=== PATIENT | female | born 1990 | race Hispanic/Latino ===

== ENCOUNTER 2018-08-10 20:37 | Emergency (ER) | payer BC, OTHER ==
[2018-08-10] MEDS ORDERED: Morphine 4 MG/ML VIAL ONE ×2 (21:09→22:19)
[2018-08-10] MEDS ORDERED: Ondansetron HCl/PF 4 MG/2 ML Vial ONE ×2 (21:09→22:19)
[2018-08-10 22:18] LABS: #Basophils 0.1 thou/uL (0.0-0.2); #Eosinphils 0.3 thou/uL (0.0-0.7); #Monocytes 0.7 thou/uL (0.11-0.59); %Basophils 1.1 % (0.0-1.0); %Eosinophils 2.6 % (0.0-10.0); %Monocytes 6.5 % (0.0-10.0); %Neutrophils 59.8 % (42.0-75.0); Hemoglobin 13.1 g/dL (12.0-16.0); Large Platelets SLIGHT; MDiff Complete? YES; Mean Corpuscular HGB CONC 33.7 g/dL (32.0-36.0); Mean Corpuscular Hemoglobin 30.7 pg (27.0-31.0); Mean Corpuscular Volume 91.2 fL (78.0-98.0); Mean Platelet Volume 15.1 fL (7.4-10.4); PLT Morphology Comment Appears Adequate; Platelet Count 166 thou/uL (130-400); RBC Distribution Width 11.6 % (11.5-14.5); Red Blood Cell (RBC) Count 4.26 mill/uL (4.20-5.40)
--- NOTE | 2018-08-10 23:50 | ULT ---
TRANSABDOMINAL AND TRANSVAGINAL PELVIC ULTRASOUND WITH BECKWITH SCALE, COLOR FLOW AND SPECTRAL DOPPLER IM AGIN08/10/18 HISTORY: Vaginal bleeding, pelvic pain, suspected miscarriage, dropping HCG. FINDINGS: The uterus measures 13.3 x 5.1 cm. No intrauterine gestational sac is seen. Complex fluid and echogen ic material in the endometrial cavity is likely due to retained products of conception. No hear t tones are seen. The ovaries have a normal appearance and demonstrate flow. No free fluid is seen in the cul-de-sac. IMPRESSION: No evidence of viable . Findings are consistent with retained products of conception. Correl ation with serial serum beta HCG and followup ultrasound is recommended. POS: MIGNON
== END 2018-08-10 23:50 | disposition home or self-care (01) ==
LOC: SCSER 20:37
DX: O03.4 Incomplete spontaneous abortion without complication (principal)
CPT/HCPCS: 36415; 76856; 84702; 85025; 86900; 86901; 96374; 96375; 96376; J2270; J2405

== ENCOUNTER 2019-11-02 04:53 | Inpatient (IN) | payer BC, MEDICAID ==
[2019-11-02] MEDS: Lactated Ringer's 1,000 ML IV SCH ×4 (05:35→22:15)
[2019-11-02 05:42] VITALS: BMI 35.8
[2019-11-02] MEDS ORDERED: Ondansetron PF 4 MG/2 ML Vial IVP PRN ×3 (05:42→09:06)
[2019-11-02] MEDS ORDERED: Promethazine HCl 25 MG/ML VIAL IM PRN ×2 (05:42→07:18)
[2019-11-02] MEDS ORDERED: hydrALAZINE 20 MG/ML VIAL SLOW IVP PRN ×2 (05:42→09:06)
[2019-11-02] MEDS ORDERED: Bicitra 30 ML UDCUP PO SCH (05:42)
[2019-11-02] MEDS ORDERED: CEFAZOLIN 2 GM in Premix Bag 1 BAG IVPB SCH (05:42)
[2019-11-02 06:07] LABS: Hemoglobin 10.9 g/dL (12.0-16.0); Mean Corpuscular HGB CONC 34.2 g/dL (32.0-36.0); Mean Corpuscular Hemoglobin 29.7 pg (27.0-31.0); Mean Corpuscular Volume 86.8 fL (78.0-98.0); Mean Platelet Volume 11.2 fL (7.4-10.4); Platelet Count 161 thou/uL (130-400); RBC Distribution Width 12.5 % (11.5-14.5); Red Blood Cell (RBC) Count 3.66 mill/uL (4.20-5.40); White Blood Cell (WBC) Count 7.4 thou/uL (4.8-10.8)
[2019-11-02 06:49] LABS: HBSAg Index 0.15 S/CO (0-0.99); Hep B Surf Ag Non-Reactive S/CO (NonReactive)
[2019-11-02 06:50] LABS: Syphilis Antibody Nonreactive (Nonreactive); Syphilis Antibody Index 0.02 S/CO (<1.00 Non-Reactive)
[2019-11-02] MEDS ORDERED: PHENYLEPHRINE-NS 100 MCG/ML 10 ML SYRINGE ONE (06:59)
[2019-11-02] MEDS ORDERED: Ondansetron PF 4 MG/2 ML Vial ONE (06:59)
[2019-11-02] MEDS ORDERED: Oxytocin 10 UNITS/ML VIAL ONE ×2 (06:59→08:09)
[2019-11-02] MEDS ORDERED: Dexamethasone 4 mg/ml Vial ONE (06:59)
[2019-11-02] MEDS ORDERED: MORPHINE 5 MG/10 ML PF VIAL ONE (06:59)
[2019-11-02] MEDS ORDERED: ePHEDrine/0.9% NaCl/PF SYRINGE 50 mg/10 ml ONE (06:59)
[2019-11-02] MEDS ORDERED: Naloxone HCl 0.4 mg/ml Vial IVP PRN ×2 (07:18)
[2019-11-02] MEDS ORDERED: Naloxone HCl 0.4 mg/ml Vial IV PRN (07:18)
[2019-11-02] MEDS ORDERED: Ondansetron HCl/PF 4 MG/2 ML Vial IVP PRN (07:18)
[2019-11-02] MEDS ORDERED: diphenhydrAMINE 50 MG/ML VIAL IVP PRN (07:18)
[2019-11-02] MEDS ORDERED: HYDROmorphone 2 MG/ML VIAL SLOW IVP PRN (07:18)
[2019-11-02] MEDS ORDERED: L&D-Morphine 4 MG/ML VIAL SLOW IVP PRN (07:18)
[2019-11-02] MEDS ORDERED: Promethazine HCl 25 MG SUPP PR PRN (07:18)
[2019-11-02] MEDS ORDERED: Meperidine HCl/PF 25 MG/ML VIAL SLOW IVP PRN (07:18)
[2019-11-02] MEDS ORDERED: Communication Order-Pharmacy FS SCH (07:30)
[2019-11-02] MEDS ORDERED: Ketorolac Tromethamine 30 MG/ML VIAL IVP SCH (07:30)
[2019-11-02] MEDS ORDERED: Acetaminophen 325 MG TAB PO PRN (09:06)
[2019-11-02] MEDS ORDERED: Zolpidem Tartrate 5 MG TAB PO PRN (09:06)
[2019-11-02] MEDS ORDERED: Lanolin Ointment 7 GM TUBE TOP PRN (09:06)
[2019-11-02] MEDS ORDERED: Meperidine HCl/PF 25 MG/ML VIAL IM PRN (09:06)
[2019-11-02] MEDS ORDERED: Bisacodyl 10 MG SUPP PR PRN (09:06)
[2019-11-02] MEDS ORDERED: HYDROcodone/Acetaminophen 5/325 mg Tablet PO PRN (09:06)
[2019-11-02] MEDS ORDERED: Ketorolac Tromethamine 30 MG/ML VIAL ONE (10:19)
[2019-11-02] MEDS: Ketorolac Tromethamine 30 MG/ML VIAL IVP PRN ×3 (10:24→21:37)
[2019-11-02] MEDS: Ibuprofen 800 MG TAB PO SCH ×2 (11:43→21:36)
[2019-11-02] MEDS: Ferrous Sulfate 325 MG TAB PO SCH (11:43)
[2019-11-02] MEDS: Docusate Calcium (SURFAK) 240 MG CAP PO SCH (21:38)
[2019-11-02] MEDS: diphenhydrAMINE 25 MG CAP PO PRN (21:45)
[2019-11-03] MEDS: Lactated Ringer's 1,000 ML IV SCH ×2 (00:44→14:27)
[2019-11-03] MEDS: HYDROcodone/Acetaminophen 5/325 mg Tablet PO PRN ×2 (04:18→12:46)
[2019-11-03] MEDS: Simethicone Chewable 80 MG TAB PO PRN ×2 (04:19→12:04)
[2019-11-03] MEDS: diphenhydrAMINE 25 MG CAP PO PRN ×2 (04:19→12:46)
[2019-11-03] MEDS: Ibuprofen 800 MG TAB PO SCH ×3 (05:49→21:05)
[2019-11-03 08:10] LABS: Hemoglobin 8.8 g/dL (12.0-16.0); Mean Corpuscular HGB CONC 34.8 g/dL (32.0-36.0); Platelet Count 147 thou/uL (130-400); RBC Distribution Width 12.6 % (11.5-14.5); Red Blood Cell (RBC) Count 2.85 mill/uL (4.20-5.40)
[2019-11-03] MEDS: Docusate Calcium (SURFAK) 240 MG CAP PO SCH ×2 (09:04→20:17)
[2019-11-03] MEDS: Ferrous Sulfate 325 MG TAB PO SCH ×2 (09:04→20:18)
[2019-11-03] MEDS: Prenatal Vitamin 1 TAB PO SCH (09:04)
[2019-11-03] MEDS ORDERED: Adacel (T-DAP) 0.5 ML SYRINGE IM ONE (09:06)
[2019-11-04] MEDS: Lactated Ringer's 1,000 ML IV SCH ×2 (00:02→05:24)
[2019-11-04] MEDS: Ibuprofen 800 MG TAB PO SCH (05:24)
[2019-11-04 08:53] VITALS: BP 121/67; TEMP 98.4
[2019-11-04] MEDS: Ferrous Sulfate 325 MG TAB PO SCH (09:24)
[2019-11-04] MEDS: Prenatal Vitamin 1 TAB PO SCH (09:24)
[2019-11-04] MEDS: HYDROcodone/Acetaminophen 5/325 mg Tablet PO PRN (09:24)
[2019-11-04] MEDS: Docusate Calcium (SURFAK) 240 MG CAP PO SCH (09:25)
--- NOTE | 2019-11-04 17:12 | OP ---
DATE OF PROCEDURE: 11/02/2019 [employer]INE[employer] SURGEON: La Jordan MD. PREOPERATIVE DIAGNOSES: 1. Term intrauterine at 39 weeks. 2. Prior x2. POSTOPERATIVE DIAGNOSES: 1. Term intrauterine at 39 weeks. 2. Prior x2. PROCEDURES PERFORMED: 1. Repeat low transverse section. 2. Vacuum assisted delivery of the vertex. FINDINGS: 1. Nuchal cord x4. 2. Viable female infant, 7 pounds 5 ounces, Apgars 4 and 9. 3. Normal uterus, tubes, and ovaries. COMPLICATIONS: None. SPECIMENS REMOVED: Cord blood. BLOOD LOSS: Approximately 600 mL. DESCRIPTION OF PROCEDURE: After thorough consent and counseling, Mrs. Rosario was taken to the operating room and adequate local anesthesia was obtained via spinal catheterization. The patient was prepped and draped in usual fashion for abdominal surgery. Team time-out was performed per protocol. Attention was then turned to perform the repeat low-transverse section. A Pfannenstiel incision was made and the old scar was excised. The incision was carried sharply to the fascia which was also sharply incised. The midline was identified. The rectus muscles were retracted laterally. The abdominal peritoneal cavity was entered with usual safeguards carried out. A retractor was placed and a bladder flap was created on the vesicouterine peritoneum. A bladder blade was then placed. A low-transverse incision was made on the well-developed lower uterine segment. Upon entering the amniotic sac, copious amount of clear amniotic fluid was visualized. The was noted to be vertex presentation in the occiput transverse position. With the assistance of a vacuum, the vertex was delivered to assist in an atraumatic delivery. Head was delivered and a nuchal cord x4 was encountered. Nuchal cord was easily reduced. Shoulders and body were then delivered in an atraumatic fashion. The cord was doubly clamped and cut. The infant was handed to the pediatric team in attendance for the delivery. The infant was a viable female, weighing 7 pounds 9 ounces with Apgars of 4 and 9 obtained at 1 and 5 minutes respectively. Cord blood was obtained. The placenta was manually removed from the uterus. Uterus was exteriorized and good tone was noted. The uterine cavity was cleared of remaining clots and fluid. The low-transverse incision was closed with a running locking ligature. The low-transverse incision was closed with a running locking ligature of #1 chromic. Several mdmnls-cz-[id number] ligatures of #1 chromic were placed to facilitate strength and hemostasis. The vesicouterine peritoneum was reapproximated to the lower segment with a running ligature of 3-0 Monocryl. Good integrity was noted. The posterior cul-de-sac and gutters were cleared of clot and fluid. The uterus, fallopian tubes, and ovaries were inspected and noted to be normal. Seprafilm was applied to the low-transverse incision and to the anterior aspect of the uterus for adhesion prevention. The uterus was returned to the abdomen. Good tone hemostasis was again noted. Lap, sponge, and needle counts were correct. The peritoneum was closed with a running ligature of 2-0 Vicryl suture. The rectus muscles were reapproximated in the midline with interrupted ligatures of 2-0 Vicryl suture. The fascia was then closed with 2 ligatures of 0 Vicryl suture which was tied in the midline. Good fascial integrity was noted. The incision was irrigated with copious amount of warm normal saline. Hemostasis was obtained with Bovie cauterization. The subcutaneous tissue was closed with interrupted ligatures of 2-0 plain. The skin was closed with subcuticular stitch of 4-0 Monocryl and dressed with Dermabond. A pressure dressing and ice packs were subsequently placed. Lap, sponge, needle counts were correct x3. Estimated blood loss during the surgical procedure was approximately 600 mL (QBL 590 mL). The patient was taken to recovery room in good condition. Immediately following surgery, the patient and family were made aware of the surgical procedure and operative findings. Questions answered to their satisfaction. Job ID: [id number]
--- NOTE | 2019-11-06 02:40 | PQF ---
DARRIUS GRIJALVA L JUSTIN MD [id number] [facility] [id number] CLINICAL DOCUMENTATION CLARIFICATION FORM: POST DISCHARGE Addendum to original discharge summary date: ____ Late entry note date: __ DATE: 11/06/18 ATTN: Manuel Tate Please exercise your independent, professional judgment in responding to the clarification form. Clinical indicators are provided on the bottom of this form for your review Please check appropriate box(s): [ ] Acute blood loss anemia [ x] Post-op anemia related to acute blood loss [ ] Chronic Anemia due to Blood loss [ ] Other diagnosis [ ] Unable to determine In addition, please specify: Present on Admission (POA): [ x ] Yes [ ] No [ ] Unable to determine For continuity of documentation, please document condition throughout progress notes and discharge summary. Thank You. CLINICAL INDICATORS - SIGNS / SYMPTOMS / LABS Laboratory Hematology 11/02 RBC 3.66, Hgb 10.9, Hct 31.8 Laboratory Hematology 11/03 RBC 2.85, Hgb 8.8, Hct 25.3 Operative report p1 1 Estimated blood loss approximately 600ml [employer] Operative report p1 1/ term intrauterine at 39 weeks Operative report p1 1 s/p Low transverse section TREATMENTS: DEC 29 Ferrous Sulfate Blood Hematology monitoring (This form is maintained as a part of the permanent medical record) 2014 [employer] All Rights Reserved [email or web address] [not provided] [email or web address]
== END 2019-11-04 13:50 | disposition home or self-care (01) | DRG 787 ==
LOC: L&D 04:53 → 3SE 11:31
PROVIDERS: ADMIT Obstetrics & Gynecology; ATTEND Obstetrics & Gynecology
PROC: 10D00Z1 Extraction of Products of Conception, Low, Open Approach (ICD-10-PCS; principal; 2019-11-02)
DX: O34.211 Maternal care for low transverse scar from previous cesarean delivery (principal); D62 Acute posthemorrhagic anemia; Z3A.39 39 weeks gestation of pregnancy; Z37.0 Single live birth; O69.81X0 Labor and delivery complicated by cord around neck, without compression, not applicable or unspecified; Z90.49 Acquired absence of other specified parts of digestive tract; O90.81 Anemia of the puerperium
CPT/HCPCS: 36415; 51702; 85027; 86780; 86850; 86900; 86901; 87340; J0690; J1100; J1885; J2274; J2405; J2590; Q0163